=== PATIENT | female | born 1990 | race Two or more races ===

== ENCOUNTER 2024-08-11 19:26 | Emergency (ER) | payer OTHER ==
[~2024-08-11] VITALS: Ht 162.6 cm; Wt 61.1 kg
[2024-08-11] MEDS: PROCHLORPERAZINE EDISYLATE 5 MG/ML 2ML VIAL IV ONE (20:30)
--- NOTE | 2024-08-11 20:31 | ED.PDOC ---
GI ASSESSMENT HPI Comments 34-year-old female who comes in with chief complaint of epigastric pain that radiates towards the back. The patient states that the pain is a 10/10. The patient states that the symptoms started yesterday and associated with a significant amount of nausea and vomiting. Upon arrival, the patient's seems very uncomfortable and states that she has never had this pain in the past. Chief Complaint: Abdominal Pain Time Seen by MD: 19:30 Reviewed Notes: Nurses Notes, Medications, Allergies (No allergies to medications) Allergies: Coded Allergies: NO KNOWN ALLERGIES (Unverified , 08/11/24) Home Meds Active Scripts Ondansetron Odt 4MG Tab (ZOFRAN PO) 4 Mg Tb, 4 MG PO Q8HP PRN for 5 Days, #15 TAB ODT TAB-DISSOLVE IN MOUTH, THEN SWALLOW Prov:JAY MALDONADO MD 08/11/24 Pantoprazole Sodium Sesquihydr (Protonix) 40 Mg Tab, 40 MG PO DAILY, #30 TAB Prov:JAY MALDONADO MD 08/11/24 Information Source: Patient Mode of Arrival: Ambulatory Duration: Since onset Prehospital treatment: None Quality: Burning, Cramping Vomitus: Bilious Stool: Normal Severity: Moderate Recent: None Recent Hx of: None Pain Location: Epigastric Modifying Factors: Nothing Associated sign and symptoms: Nausea, Vomiting, Abdominal Pain Past Medical History PAST MEDICAL HISTORY: Denies Surgical History (Other): Right ovary surgery [employer] History: No Pertinent [employer] History Family History Family History: Family hx of Cancer Social History Smoker: Non-Smoker Alcohol: Occasionally Drugs: Denies Drug Use Lives In: Home Constitutional: denies: chills, diaphoresis, fatigue, fever, malaise, sweats, weakness, others EENTM: denies: blurred vision, double vision, ear bleeding, ear discharge, ear drainage, ear pain, ear ringing, eye pain, eye redness, hearing loss, mouth pain, mouth swelling, nasal discharge, nose bleeding, nose congestion, nose pain, photophobia, tearing, throat pain, throat swelling, voice changes, others Respiratory: denies: cough, hemoptysis, orthopnea, SOB at rest, shortness of breath, SOB with excertion, stridor, wheezing, others Cardiovascular: denies: chest pain, dizzy spells, diaphoresis, Dyspnea on exertion, edema, irregular heart beat, left arm pain, lightheadedness, palpitations, PND, syncope, others Gastrointestinal: reports: abdominal pain, nausea, vomiting; denies: abdomen distended, blood streaked bowels, constipated, diarrhea, dysphagia, difficulty swallowing, hematemesis, melena, poor appetite, poor fluid intake, rectal bleeding, rectal pain, others Genitourinary: denies: abnormal vagina bleeding, burning, dyspareunia, dysuria, flank pain, frequency, hematuria, incontinence, pain, , vagina discharge, urgency, others Neurological: denies: dizziness, fainting, headache, left sided numbness, left sided weakness, numbness, paresthesia, pre-existing deficit, right sided numbn ess, right sided weakness, seizure, speech problems, tingling, tremors, weakness, others Musculoskeletal: denies: back pain, gout, joint pain, joint swelling, muscle pain, muscle stiffness, neck pain, others Integumetry: denies: bruises, change in color, change in hair/nails, dryness, laceration, lesions, lumps, rash, wounds, others Allergic/Immunocompromised: denies: Difficulty Healing, Frequent Infections, Hives, Itching, others Hematologic/Lymphatic: denies: anemia, blood clots, easy bleeding, easy bruising, swollen glands, others Endocrine: denies: excessive hunger, excessive sweating, excessive thirst, excessive urination, flushing, intolerance to cold, intolerance to heat, unexplained weight gain, unexplained weight loss, others Psychiatric: denies: anxiety, bipolar disorder, depression, hopeless, panic disorder, schizophrenia, sleepless, suicidal, others Physical Exam General Appearance: Moderate Distress HEENT: Normal ENT Inspection, Pharynx Normal, TMs Normal Neck: Full Range of Motion, Non-Tender, Normal, Normal Inspection Respiratory: Chest Non-Tender, Lungs Clear, No Accessory Muscle Use, No Respiratory Distress, Normal Breath Sounds Cardiovascular: No Edema, No JVD, No Murmur, No Gallop, Normal Peripheral Pulses, Regular Rate/Rhythm Breast Exam: Deferred Gastrointestinal: Epigastric, No Organomegaly, No Pulsatile Mass, Normal Bowel Sounds, Soft, Tenderness Genitalia: Deferred Pelvic: Deferred Rectal: Deferred Extremities: No calf tenderness, Normal capillary refill, Normal inspection, Normal range of motion, Non-tender, No pedal edema Musculoskeletal : Apperance: Normal Neurologic: Alert, head of drama II-XII nml as Tested, No Motor Deficits, Normal Affect, Normal Mood, No Sensory Deficits Cerebellar Function: Normal Reflexes: Normal Skin: Dry, Normal Color, Warm Lymphatic: No Adenopathy Was a procedure done? Was a procedure done?: No GI differential Dx Differential Diagnosis: Gastritis/PUD, Gastroenteritis, Inflammatory BD, Pancre atitis, UTI, Electrolyte Imbalance, Food Poisoning X-Ray, Labs, Meds, VS Vital Signs Date Time Temp Pulse Resp B/P (MAP) Pulse Ox O2 Delivery O2 Flow Rate FiO2 08/11/24 21:21 89 18 103/52 08/11/24 21:14 89 18 96 Room Air 08/11/24 21:14 97.8 89 18 103/52 (69) 96 97.8 08/11/24 19:47 97.3 99 20 116/84 (95) 100 Lab Test 08/11/24 20:52 Range/Units White Blood Count 8.1 4.4-10.8 10^3/uL Red Blood Count 5.08 4.0-5.20 10^6/uL Hemoglobin 14.9 12.2-16.2 g/dL Hematocrit 42.6 36.0-46.0 % Mean Corpuscular Volume 83.9 80.0-100.0 fL Mean Corpuscular Hemoglobin 29.3 28.0-32.0 pg Mean Corpuscular Hemoglobin Concent 34.9 32.0-36.0 g/dL Red Cell Distribution Width 13.5 11.8-14.3 % Platelet Count 313 140-450 10^3/uL Mean Platelet Volume 8.8 6.9-10.8 fL Neutrophils (%) (Auto) 79.0 37.0-80.0 % Lymphocytes (%) (Auto) 15.4 10.0-50.0 % Monocytes (%) (Auto) 3.5 0.0-12.0 % Eosinophils (%) (Auto) 0.9 0.0-7.0 % Basophils (%) (Auto) 1.2 0.0-2.0 % Neutrophils # (Auto) 6.4 1.6-8.6 10 ^3/uL Lymphocytes # (Auto) 1.2 0.4-5.4 10 ^3/uL Monocytes # (Auto) 0.3 0-1.3 10 ^3/uL Eosinophils # (Auto) 0.1 0-0.8 10 ^3/uL Basophils # (Auto) 0.1 0-0.2 10 ^3/uL Nucleated Red Blood Cells 0.3 % Sodium Level 138 136-145 mmol/L Potassium Level 3.6 3.5-5.1 mmol/L Chloride Level 105 98-107 mmol/L Carbon Dioxide Level 24 20-31 mmol/L Anion Gap 9 5-15 Blood Urea Nitrogen 7 L 9-23 mg/dL Creatinine 0.65 0.550-1.02 mg/dL Glomerular Filtration Rate Calc 118 >90 mL/min BUN/Creatinine Ratio 10.8 10.0-20.0 Serum Glucose 103 74-106 mg/dL Calcium Level 10.4 8.7-10.4 mg/dL Total Bilirubin 2.2 H 0.2-1.0 mg/dL Aspartate Amino Transferase (AST) 939 H 13-40 U/L Alanine Aminotransferase (ALT) 496 H 7-40 U/L Alkaline Phosphatase 109 46-116 U/L Total Protein 8.0 5.7-8.2 g/dL Albumin 5.1 H 3.2-4.8 g/dL Lipase 47 12-53 U/L Current Medications Medications (Trade) Dose Ordered Sig/[place] Route Start Time Stop Time Status Last Admin Morphine Sulfate 4 mg ONCE ONCE IV 08/11/24 20:30 08/11/24 20:31 DC 08/11/24 21:21 Sodium Chloride 500 ml @ 500 mls/hr Q1H ONCE IVB 08/11/24 20:30 08/11/24 21:29 DC 08/11/24 21:16 Prochlorperazine Edisylate (Compazine Inj) 10 mg ONCE ONCE IV 08/11/24 20:30 08/11/24 20:31 DC 08/11/24 21:20 Pantoprazole Sodium (Protonix) 40 mg ONCE ONCE IV 08/11/24 20:30 08/11/24 20:31 DC 08/11/24 21:20 PROCEDURE(s): GBUS - GALLBLADDER IMPRESSION: 1. Unremarkable right upper quadrant sonogram. IV Hep-Lock was established. The patient was given morphine 4 mg IV push for the pain The patient was given normal saline at a 500 cc bolus The patient was given Compazine 10 mg IV push for the nausea and vomiting The patient was given Protonix 40 mg IV push The patient's CBC and chemistry panel is within normal limits of the liver enzymes are all elevated The patient states that she did have some pain relief We are going to discharge the patient the diagnosis of GERD The patient was given a prescription of Protonix and Zofran Images Reviewed?: Images reviewed and evaluated by me Time of 1ST Reevaluation: 20:35 Reevaluation 1ST: Unchanged Patient Education/Counseling: Diagnosis, Treatment, Prognosis, Need For Follow Up Family Education/Counseling: Diagnosis, Treatment Additional Information - I reviewed the following notes from patient's past medical encounters: - The following tests were ordered, and results were reviewed by me: (Labs, X- Ray, EKG): cbc, cmp, lipase, ua, gallbladder us, urine test - Additional information was gathered from interviewing the following independent Historian: (Family, Other Providers, EMT): none - I reviewed and agreed with the following test results read by other provider: radiologist - I discussed treatments and results with medical personnel and: (consultants, family): none Departure 1 Departure Time of Disposition: 21:56 Impression: Primary Impression: Intractable abdominal pain Additional Impression: GERD (gastroesophageal reflux disease) Qualified Codes: K21.00 - Gastro-esophageal reflux disease with esophagitis, without bleeding Disposition: 01 HOME / SELF CARE / HOMELESS Condition: Fair e-Prescriptions Ondansetron Odt 4MG Tab (ZOFRAN PO) 4 Mg Tb 4 MG PO Q8HP PRN for 5 Days, #15 TAB ODT TAB-DISSOLVE IN MOUTH, THEN SWALLOW Prov: JAY MALDONADO MD 08/11/24 Pantoprazole Sodium Sesquihydr (Protonix) 40 Mg Tab 40 MG PO DAILY, #30 TAB Prov: JAY MALDONADO MD 08/11/24 Discharged With: Self, Significant Other Critical Care Note Critical Care Time?: No Stability Stability form required: No Heart Score Heart Score: Heart Score Response (Comments) Value History N/A 0 EKG N/A 0 Age N/A 0 Risk Factors N/A 0 Troponin N/A 0 Total 0 I personally scribed for JAY MALDONADO MD ([email or web address]) on 08/11/24 at 21:17. Electronically submitted by Yuni Jacques ([email or web address]). I personally scribed for JAY MALDONADO MD ([email or web address]) on 08/11/24 at 21:18. Electronically submitted by Yuni Jacques ([email or web address]). JAY MALDONADO MD Aug 11, 2024 20:31
--- NOTE | 2024-08-11 21:15 | DVH ---
INDICATION: pain TECHNIQUE: Multiple real-time sonographic images were obtained of the right upper quadrant. COMPARISON: None FINDINGS: The liver demonstrates homogeneous echotexture without focal mass lesions. The liver measu res 13.8 cm. There is no intrahepatic or extrahepatic ductal dilatation. The common duct measures 0.5 cm. The gallbladder is without evidence of stone or sludge. The gallbladder wall measures 0.2 cm and is within normal limits. The right kidney measures 9.6 cm. The right kidney is normal in contour, size, and shape. The echog enicity is normal. There is no hydronephrosis. The pancreas is not well visualized due to overlying bowel gas. IMPRESSION: 1. Unremarkable right upper quadrant sonogram.
[2024-08-11] MEDS: SODIUM CHLORIDE 0.9% 500 ML IVB ONE (21:16)
[2024-08-11 21:18] LABS: Basophils # (auto) 0.1 10 ^3/uL (0-0.2); Basophils % (auto) 1.2 % (0.0-2.0); Eosinophils # (auto) 0.1 10 ^3/uL (0-0.8); Eosinophils % (auto) 0.9 % (0.0-7.0); Hematocrit 42.6 % (36.0-46.0); Hemoglobin 14.9 g/dL (12.2-16.2); Lymphocytes # (auto) 1.2 10 ^3/uL (0.4-5.4); Lymphocytes % (auto) 15.4 % (10.0-50.0); Mean Corpuscular Hemoglobin 29.3 pg (28.0-32.0); Mean Corpuscular Hgb Conc. 34.9 g/dL (32.0-36.0); Mean Corpuscular Volume 83.9 fL (80.0-100.0); Monocytes # (auto) 0.3 10 ^3/uL (0-1.3); Monocytes % (auto) 3.5 % (0.0-12.0); Neutrophils # (auto) 6.4 10 ^3/uL (1.6-8.6); Nucleated Red Blood Cells % 0.3 %; Platelet Count (auto) 313 10^3/uL (140-450); Red Blood Cells 5.08 10^6/uL (4.0-5.20); Red Cell Distribution Width 13.5 % (11.8-14.3); White Blood Cell 8.1 10^3/uL (4.4-10.8)
[2024-08-11] MEDS: PANTOPRAZOLE 40 MG/10 ML VIAL INJ IV ONE (21:20)
[2024-08-11] MEDS: MORPHINE SULFATE 4 MG/ML SYR/VIAL IV ONE (21:21)
[2024-08-11 21:29] LABS: Alkaline Phosphatase 109 U/L (46-116); Anion Gap 9 (5-15); BUN/Creatinine Ratio 10.8 (10.0-20.0); Calcium 10.4 mg/dL (8.7-10.4); Carbon Dioxide 24 mmol/L (20-31); Chloride 105 mmol/L (98-107); Glucose 103 mg/dL (74-106); Lipase 47 U/L (12-53); Potassium 3.6 mmol/L (3.5-5.1); Sodium 138 mmol/L (136-145)
[2024-08-11 21:38] LABS: Alanine Aminotransferase 496 U/L (7-40); Albumin 5.1 g/dL (3.2-4.8); Aspartate Aminotransferase 939 U/L (13-40); Bilirubin, Total 2.2 mg/dL (0.2-1.0); Blood Urea Nitrogen 7 mg/dL (9-23)
[2024-08-11] MEDS ORDERED: ZOFR4T PO (21:55)
[2024-08-11] MEDS ORDERED: PANT40TA2 PO (21:55)
[2024-08-11 22:32] VITALS: BP 117/75; PULSE 87; RESP 17; TEMP 98; O2SAT 95
== END 2024-08-11 22:32 | disposition home or self-care (01) ==
LOC: ER 19:26
DX: K21.9 Gastro-esophageal reflux disease without esophagitis (principal); R10.13 Epigastric pain; Z98.890 Other specified postprocedural states
CPT/HCPCS: 36415; 76705; 80053; 83690; 85025; 96361; 96374; 96375; 99285; J0780; J2270; J2470; J7040